=== PATIENT | female | born 1970 | race Hispanic/Latino ===

== ENCOUNTER 2018-06-26 15:31 | Outpatient (CLI) | payer BC, OTHER | END 2018-06-26 15:32 | disposition home or self-care (01) | LOC: LABHHL 15:31 | PROVIDERS: ATTEND Specialist | DX: D05.81 Other specified type of carcinoma in situ of right breast (principal) | CPT/HCPCS: 88305; 88342; 88361 ==

== ENCOUNTER 2018-07-12 12:34 | Outpatient (CLI) | payer BC ==
--- NOTE | 2018-07-15 15:15 | Magnetic Resonance Report ---
BILATERAL BREAST MRI WITHOUT AND WITH CONTRAST: 07/12/18 12:34:00 CLINICAL: Newly diagnosed right breast cancer. Status post right ultrasound guided needle biopsy on 06/26/18 with pathologic diagnosis of invasive carcinoma NOS with Laurens overall histologic grade of 3. COMPARISON:05/22/18 bilateral mammogram. TECHNIQUE: Axial 1.0-mm T1 without, axial high resolution 2.0-mm T2 and axial 1.0-mm dynamic Vibrant high-resolution postcontrast T1 fat saturation sequences on a 1.5 Erin magnet. The examination was performed with an 8 channel dedicated [place] breast coil. Post processing with CAD and subtraction was performed on an [employer] workstation by the radiologist. 18.0 cc of Multihance was injected without incident for the contrast portion of the exam. Consent was obtained prior to the administration of the contrast. FINDINGS: Right: Mild background parenchymal enhancement. The known cancer is an irregular enhancing mass at 2 o'clock 9.9 cm from the nipple measuring 11.7 x 10.1 x 10.0 mm. It demonstrates heterogeneous enhancement with mixed kinetics, 253% peak enhancement, 12% type I persistent, 44% type II plateau and 44% type III washout waveforms. Lesion 2 is an irregular enhancing mass at 12 o'clock 8.3 cm from the nipple measuring 6.6 x 3.4 x 3.0 mm. It is approximately 1 cm anterior and medial to the known cancer. It demonstrates heterogeneous enhancement with mixed kinetics, 203% peak enhancement, 5% type I persistent, 65% type II plateau and 30% type III washout. Lesion 3 is an oval enhancing mass in the lower outer quadrant 9.6 cm from the nipple measuring 1.8 x 0.9 x 0.7 cm. It contains a biopsy clip and correlates with a known benign mass. It demonstrates heterogeneous enhancement with mixed kinetics, 251% peak enhancement, 45% type I persistent, 52% type II plateau and 3% type III washout. No other mass or suspicious enhancement of the right breast. No suspicious lymph nodes. Left: Mild background parenchymal enhancement. Suspicious linear non-Mass enhancement with focal architectural distortion at 12 o'clock 6.3 cm from the nipple measures 11.3 x 4.9 x 3.5 mm. It demonstrates heterogeneous enhancement with next kinetics, 138% peak enhancement, 24% type I persistent, 45% type II plateau and 31% type III washout. A 1.3 cm cyst are identified adjacent to this lesion. No other suspicious enhancement no mass. No suspicious lymph nodes. IMPRESSION: 1. Known right breast cancer and one additional highly suspicious subcentimeter lesion within 1 cm of the known cancer. 2. A 1.8 cm benign outer right breast mass. 3. Suspicious linear non-Mass enhancement of the left breast. Recommend MRI guided needle biopsy of the left breast. 4. No suspicious lymph nodes. RIGHT BI-RADS 6 -- Known Cancer LEFT BI-RADS 4 -- Suspicious
== END 2018-07-12 12:35 | disposition home or self-care (01) ==
LOC: SPVIMAG 12:34
PROVIDERS: ATTEND Surgery
DX: C50.211 Malignant neoplasm of upper-inner quadrant of right female breast (principal)
CPT/HCPCS: A9577; C8908; 77059

== ENCOUNTER 2018-07-22 10:10 | Outpatient (CLI) | payer BC ==
--- NOTE | 2018-07-22 12:50 | Ultrasound Report ---
TARGETED RIGHT BREAST ULTRASOUND: 07/22/18 CLINICAL: Known right breast cancer and an additional 6 mm suspicious mass by MRI. COMPARISON: MRI 07/12/18 FINDINGS: Ultrasound of the left breast demonstrated a single solid irregular hypoechoic mass in the 1 o'clock 4 cm from the nipple. It contains a biopsy clip and correlates with the known cancer. No mass is identified to correlate with the MRI finding. IMPRESSION: Known left breast cancer at 1 o'clock and identifiable mass by ultrasound to correlate with the 6 mm adjacent mass identified by MRI. BI-RADS 6--Known Cancer RECOMMENDATION: MRI guided needle biopsy with clip placement to ensure adequate localization for surgical excision.
== END 2018-07-22 10:11 | disposition home or self-care (01) ==
LOC: SPVWC 10:10
PROVIDERS: ATTEND Surgery
DX: C50.911 Malignant neoplasm of unspecified site of right female breast (principal)

== ENCOUNTER 2018-08-28 10:51 | Observation (INO) | payer BC ==
--- NOTE | 2018-08-27 11:33 | Anesthesia Consultation ---
Anesthesia Consult and Med Hx Date of service: 08/27/18 - Airway Anesthetic Teeth Evaluation: Bridges (upper) ROM Head & Neck: Adequate Mental/Hyoid Distance: Adequate Mallampati Class: Class III Intubation Access Assessment: Probably Good - Pulmonary Exam CTA: Yes - Cardiac Exam Cardiac Exam: RRR - Pre-Operative Health Status ASA Pre-Surgery Classification: ASA3 Proposed Anesthetic Plan: General - Pre-Anesthesia Comment Pre-Anesthesia Comments: CXR pending - Pulmonary Hx Smoking: Yes (1 2 PPD FOR 22 YEARS, QUIT 08/09/18) - Cardiovascular System Hx Hypertension: Yes (8 YEARS) - Central Nervous System Hx Psychiatric Problems: No - Gastrointestinal Hx Gastroesophageal Reflux Disease: No (IBS-D) - Other Systems Hx Cancer: Yes (Right breast CA)
--- NOTE | 2018-08-27 12:23 | XRay Report ---
ROUTINE CHEST, TWO VIEWS: HISTORY: Presurgical evaluation. The trachea, heart, mediastinal contour, lung hernández and bony thorax are unremarkable. IMPRESSION: Unremarkable chest x-ray.
[~2018-08-28 10:51] MED LIST: ANCEF IV ONE; BACITRACIN IR ONE; GARAMYCIN IV ONE; METHYLENE BLUE IRRIGATION ONE; NACL 0.9% 1000 ML IV ONE
[2018-08-28] MEDS ORDERED: NEURONTIN PO NR (11:00)
[2018-08-28] MEDS ORDERED: VERSED IV NR (11:00)
[2018-08-28] MEDS: LACTATED RINGERS 1,000 ML IV SCH (12:15)
[2018-08-28] MEDS ORDERED: DECADRON ONE ×2 (12:44→13:44)
[2018-08-28] MEDS ORDERED: DILAUDID IV PRN (13:22)
--- NOTE | 2018-08-28 13:22 | Anesthesia Day of Surgery ---
Anesthesia Day of Surgery - Day of Surgery Patient Examined: Yes Patient H&P Reviewed: Yes Patient is NPO: Yes
[2018-08-28] MEDS ORDERED: XYLOCAINE MPF 2% ONE (13:44)
[2018-08-28] MEDS ORDERED: SUBLIMAZE ONE (13:44)
[2018-08-28] MEDS ORDERED: ZOFRAN ONE (13:44)
[2018-08-28] MEDS ORDERED: DIPRIVAN 10 MG/ML IV ONE (13:45)
--- NOTE | 2018-08-28 13:49 | Operative Report ---
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 [employer]: Nidhi Hanna DO Anesthesia: Gen. Findings: Right breast clip present within right total mastectomy, left breast clip present within left total mastectomy. 2 sentinel lymph nodes identified and negative for malignancy on frozen section of pathology Complications: None Drains: per Plastic Surgery Estimated blood loss: Minimal Disposition: Dr. Stanton continued with bilateral tissue analysis reporting developer placement Indications for operative procedure: This is a 47-year-old lady with stage I right breast cancer of the upper inner quadrant, [id number] and PALB2 positive gene mutation. Recommendations were to proceed with right total mastectomy with SLN staging and left prophylactic mastectomy, patient high risk for breast cancer given positive PALB2 gene mutation. Patient wished to proceed with the above procedure and immediate tissue analysis reporting developer placement with plastic reconstructive surgery. Procedure in detail: Anesthesia placed a bilateral pectoral muscle block prior to going to the operating room. The patient was taken to the operating room and was placed supine. Gen. anesthesia was administered. The left nipple was injected with radioisotope. Bilateral breast were prepped and draped in the normal postoperative fashion. Timeout was performed. Mastectomy incision markings were made. Attention was taken towards the left breast first. A skin incision was made with a 10 blade knife and dissection taken down to the subcutaneous tissues. First began raising of the superior flap to the level of the clavicle superiorly and posteriorly to the pectoralis muscle. Followed by raising of the medial flap to the level of the sternum and posteriorly to the pectoralis muscle. Followed by raising of the lateral flap to the level of the latissimus dorsi muscle and taken down posteriorly. Followed by raising of the inferior flap to the level of the inframammary fold taken posterior to the pectoralis muscle. The mastectomy/breast was removed from the pectoralis muscle without incident. The specimen was appropriately marked and sent to pathology. Hemostasis was obtained with the bovie cautery. Attention was taken towards the right breast first. A skin incision was made with a 10 blade knife and dissection taken down to the subcutaneous tissues. First began raising of the superior flap to the level of the clavicle superiorly and posteriorly to the pectoralis muscle. Followed by raising of the medial flap to the level of the sternum and posteriorly to the pectoralis muscle. Followed by raising of the lateral flap to the level of the latissimus dorsi muscle and taken down posteriorly. The gamma probe was inserted into the axilla, axillary fascia was opened and 2 sentinel lymph nodes was identified and all remaining counts were less than 10% of the highest count. Lymph nodes were sent to pathology with findings negative for malignancy noted on frozen section. Then proceeded with raising of the inferior flap to the level of the inframammary fold taken posterior to the pectoralis muscle. The mastectomy/ breast was removed from the pectoralis muscle without incident. The specimen was appropriately marked and sent to radiology with findings of 2 breast clips present and sent to pathology. Hemostasis was obtained with the bovie cautery. Dr. Stanton then proceeded with bilateral tissue analysis reporting developer placement.
--- NOTE | 2018-08-28 13:55 | Short Stay Summary ---
Short Stay Documentation Date of service: 08/28/18 - History H&P: obtained from office - Allergies and Medications Current Medications: Allergies No Known Allergies Allergy (Verified 08/19/18 16:14) Home Medications Medication Instructions Recorded Confirmed Last Taken Type Lisinopril/Hydrochlorothiazide 1 each PO DAILY 08/19/18 08/28/18 08/27/18 14:00 History [Zestoretic 10-12.5 mg Tablet] RX: Black Cohosh 540 mg PO DAILY 08/19/18 08/28/18 08/27/18 History Varenicline Tartrate [Chantix] 1 tab PO BID 08/19/18 08/28/18 08/27/18 20:30 History Active Medications Cefazolin Sodium (Ancef/Sterile Water 2 Gm/20 Ml) 2 gm IV PREOP NR Stop: 08/28/18 20:00 Celecoxib (Celebrex) 200 mg PO PREOP NR Stop: 08/28/18 15:00 Last Admin: 08/28/18 12:15 Dose: 200 mg Gabapentin (Neurontin) 300 mg PO PREOP NR Stop: 08/28/18 15:00 Last Admin: 08/28/18 12:15 Dose: 300 mg Hydromorphone HCl (Dilaudid) 0.5 mg IV Q10MIN PRN PRN Reason: Pain , Severe (7-10) Stop: 08/28/18 22:00 Lactated Ringer's (Lactated Ringers) 1,000 mls @ 100 mls/hr IV DIRECT VERONIQUE Last Admin: 08/28/18 12:15 Dose: 100 mls/hr Midazolam HCl (Versed) 2 mg IV PREOP NR Stop: 08/28/18 23:59 Last Admin: 08/28/18 12:48 Dose: 2 mg - Brief post op/procedure progress note Date of procedure: 08/28/18 Pre-op diagnosis: Right breast cancer of the upper inner quadrant Post-op diagnosis: same Procedure: Right total mastectomy with SLNB and left total mastectomy Anesthesia: GETA Findings: 2 slns neg for malignancy; clips present in both breast specimen Surgeon: SIMIN FRAZIER Estimated blood loss: minimal Pathology: list (marcos mastectomy; SLNB) Specimen disposition: to lab Condition: stable - Disposition Condition at discharge: Good Short Stay Discharge Plan Activity: other (no heavy lifting) Diet: regular Wound: keep clean and dry, other (keep incisions clean and dry; no showers or baths) Follow up with: YAMILETH BLANCO DO [Primary Care Provider] - 7 Days SIMIN FRAZIER MD [Staff Physician] - 7 Days
[2018-08-28] MEDS ORDERED: TYLENOL PO PRN (13:57)
[2018-08-28] MEDS ORDERED: SODIUM CHLORIDE FLUSH SYRINGE 10 ML IV PRN (13:57)
[2018-08-28] MEDS ORDERED: BENADRYL PO PRN (13:57)
[2018-08-28] MEDS ORDERED: ZOFRAN IV PRN (13:57)
[2018-08-28] MEDS ORDERED: REGLAN PO PRN (13:57)
[2018-08-28] MEDS ORDERED: MORPHINE IV PRN (13:59)
[2018-08-28] MEDS ORDERED: LACTATED RINGERS 1,000 ML IV SCH (14:00)
[2018-08-28] MEDS ORDERED: ANCEF/STERILE WATER 2 GM/20 ML IV NR (14:00)
[2018-08-28] MEDS ORDERED: BACITRACIN ONE (14:04)
[2018-08-28] MEDS ORDERED: METHYLENE BLUE ONE (14:04)
[2018-08-28] MEDS ORDERED: ANCEF ONE (14:04)
[2018-08-28] MEDS ORDERED: GARAMYCIN ONE (14:05)
[2018-08-28] MEDS ORDERED: NACL 0.9% 1000 ML 1,000 ML ONE (14:05)
[2018-08-28] MEDS ORDERED: DILAUDID ONE (15:30)
--- NOTE | 2018-08-28 17:23 | Post Operative Note ---
Pre-op diagnosis: right breast cancer Post-op diagnosis: same Findings: bilateral mastectomy defects Procedure: bilateral breast reconstruction with expanders and mesh Anesthesia: GETA Surgeon: LAURA HARRIS Estimated blood loss: 50-100ml Specimen disposition: to lab Condition: stable Disposition: PACU
[2018-08-28] MEDS ORDERED: TORADOL ONE (18:00)
[2018-08-28] MEDS ORDERED: LACTATED RINGERS 1,000 ML ONE (18:00)
[2018-08-28] MEDS: ceFAZolin 2 GM in NACL 0.9% 100 ML IV SCH (22:23)
[2018-08-28] MEDS: NEURONTIN PO SCH (22:24)
[2018-08-28] MEDS: COLACE PO SCH (22:24)
[2018-08-28] MEDS: PERCOCET 5/325 PO PRN (22:31)
[2018-08-29] MEDS: LACTATED RINGERS 1,000 ML IV SCH ×2 (00:07→07:22)
--- NOTE | 2018-08-29 00:19 | Operative Report ---
PREOPERATIVE DIAGNOSIS: Right-sided breast cancer. POSTOPERATIVE DIAGNOSIS: Right-sided breast cancer. PROCEDURES: 1. Bilateral breast reconstruction using tissue expanders in a prepectoral pocket, CPT code 72035-00. 2. Bilateral breast reconstruction using biological mesh, FlexHD, CPT code 17739-00. 3. Application of CUATE negative pressure wound VAC device to bilateral breasts for postoperative wound healing, CPT code 02570-17. SURGEON: Ron Clancy MD REPORTING COORDINATOR: None. ANESTHESIA: General. OPERATIVE INDICATIONS: A 47-year-old female, who was referred to me for breast reconstruction. The patient was planning on going on bilateral mastectomy for right-sided breast cancer with Dr. Ag. Options were discussed with the patient as well as the risks and benefits of various techniques, and we decided on a tissue education rep reconstruction. Of note, the patient was at least a 1 pack a day smoker up to the point of consultation. We discussed that in order to do the operation, she would need to quit smoking as the risk of wound healing and other infectious complications was too high for an elective procedure. The patient agreed to quit smoking and quit smoking 2 weeks prior to the procedure and so we decided to move forward. OPERATIVE DETAILS: With informed consent obtained, the patient was brought to the operating room and placed supine on the operating room table. Preoperative antibiotics and general anesthesia were administered. The patient was prepped and draped in the usual sterile fashion. Timeout was called, verifying the patient, the operation being performed. Dr. Ag began her portion of the operation and should be dictated separately. I entered the room when she had finished the left-sided mastectomy and was performing the right-sided mastectomy. Assessed the skin flaps, which were adequate and measured the chest wall diameter and decided on a prepectoral reconstruction. On the backtable, I prepared the implants. We did a tissue education rep with a partial wrap using FlexHD and order of operation was the implants and all the implants were soaked and irrigated in both triple antibiotic irrigation and Betadine. We then took the tissue education rep, deflated it and added 250 mL of saline to it and then wrapped it anteriorly with the FlexHD contour shaped piece. It was secured to the tissue education rep using the #5 suture tabs and 2-0 PDS sutures. This was performed for both implants on the right. We used a iPerceptionsa ultra high profile smooth 700 mL tissue education rep with serial #[id number]. The left same education rep with serial #[id number]. On the right, we used a piece of FlexHD pliable shaped perforated large 13 x 22 cm with serial #[id number]. On the left, we used the same piece except serial #[id number]. Once the expanders were ready, they were again soaked in triple antibiotic and I then assessed the left breast pocket and achieved hemostasis, irrigated again. We put on new gloves. We placed the composite implant into the chest pocket and sutured it to the chest wall using the 5 suture tabs and 2-0 Vicryl suture. I then used banding sutures to pull up the FlexHD anteriorly and make it taut and secured that to the upper pectoralis muscle with 3 spanning sutures. I then placed a 15-Turkish and a 19-Turkish round Anil drain into the prepectoral space, irrigated, achieved hemostasis and then closed with 3-0 Monocryl deep dermals and 2-0 V-Loc running subcuticular. A CUATE negative pressure wound VAC device was applied to the incision for postoperative wound healing and the drains were covered with Biopatches intact. Once Dr. Ag finished the right side, the exact same procedure was performed on the right. The patient tolerated the procedure well, was awakened from general anesthesia, transferred to PACU in stable condition. ESTIMATED BLOOD LOSS: 50 mL. COMPLICATIONS: None. JOB# [id number] MAURICIO/KIERAN HANCOCK
[2018-08-29] MEDS: NEURONTIN PO SCH (05:27)
[2018-08-29] MEDS: ceFAZolin 2 GM in NACL 0.9% 100 ML IV SCH (05:28)
[2018-08-29] MEDS: PERCOCET 5/325 PO PRN ×2 (05:28→10:33)
--- NOTE | 2018-08-29 08:13 | XRay Report ---
SPECIMEN RADIOGRAPH RIGHT BREAST: 08/28/18 13:58:00 CLINICAL: Right breast cancer. FINDINGS: Total mastectomy specimen with 2 biopsy clips identified within the specimen.
--- NOTE | 2018-08-29 08:14 | XRay Report ---
SPECIMEN RADIOGRAPH LEFT BREAST: 08/28/18 13:58:00 CLINICAL: Right breast cancer FINDINGS: A total mastectomy specimen with a single biopsy clip identified within the specimen.
[2018-08-29] MEDS: COLACE PO SCH (09:25)
[2018-08-29 12:17] VITALS: BP 112/65
== END 2018-08-29 12:35 | disposition home or self-care (01) ==
LOC: OR 10:51 → OB 13:58
PROVIDERS: ADMIT Surgery; ATTEND Surgery
DX: C50.911 Malignant neoplasm of unspecified site of right female breast (principal); C50.912 Malignant neoplasm of unspecified site of left female breast
CPT/HCPCS: 15777; 19357; 19366; 64450; 71046; 76098; 78800; 81025; 88307; 88309; 88331; 88333; 88342; 97608; A9541; C1789; G0378; J0690; J1100; J1170; J1580; J1885; J2250; J2405; J2704; J3010; J7030; J7120; Q4128; Q9968

== ENCOUNTER 2019-06-10 08:39 | Day surgery (SDC) | payer BC ==
[~2019-06-10 08:39] MED LIST changes: -ANCEF IV ONE; -BACITRACIN IR ONE; -GARAMYCIN IV ONE; +MARCAINE 0.25% INFILTRATI ONE; -METHYLENE BLUE IRRIGATION ONE; -NACL 0.9% 1000 ML IV ONE; +XYLOCAINE 1% 20 mL ONE
[2019-06-10] MEDS ORDERED: MARCAINE 0.25% INFILTRATI ONE (09:33)
[2019-06-10] MEDS ORDERED: XYLOCAINE 1% 20 mL INFILTRATI ONE (09:33)
[2019-06-10 09:48] VITALS: BP 122/76
--- NOTE | 2019-06-10 10:06 | Procedure Note ---
Date of procedure: 06/10/19 Pre-op diagnosis: breast cancer Post-op diagnosis: same Procedure: removal of left sided port a cath Findings: Left chest prepped and draped in the usual sterile fashion. Time out performed. Patient placed in trendelenberg position. Skin anesthetized with local anesthetic. Incision made using 15 blade at prior surgical scar. Dissection carried out using hemostat to free the port from the surrounding tissue. The catheter was grasped between two hemostats and cut. The catheter was removed and pressure held for 5 minutes. No bleeding from tract. Port then removed. Both pieces sent to path for ID. Wound irrigated with saline. Pressure held for hemostasis which was achieved. The wound was closed in 2 layers. The deep dermal layer was closed with interrupted 3-0 vicryl suture. The skin was closed with running 4-0 monocryl subcuticular suture. There was one area where skin was bleeding which was controlled with a interrupted 4-0 monocryl stitch. Bleeding stopped. Skin cleansed and dermabond applied to incision. Once glue was dry, a folded 2x2 gauze applied to incision and secured with tegaderm. The patient tolerated the procedure well. All sharps disposed of appropriately. Anesthesia: local Surgeon: GERMAINE RAMIRES Estimated blood loss: minimal Pathology: list (port and catheter) Specimen disposition: to lab Condition: stable Disposition: same day (home)
== END 2019-06-10 09:58 | disposition home or self-care (01) ==
LOC: OR 08:39
PROVIDERS: ATTEND Surgery
DX: C50.919 Malignant neoplasm of unspecified site of unspecified female breast (principal); I10 Essential (primary) hypertension; Z88.8 Allergy status to other drugs, medicaments and biological substances; Z79.899 Other long term (current) drug therapy; Z87.891 Personal history of nicotine dependence; Z98.49 Cataract extraction status, unspecified eye; Z90.13 Acquired absence of bilateral breasts and nipples; Z98.891 History of uterine scar from previous surgery; Z98.890 Other specified postprocedural states; Z80.8 Family history of malignant neoplasm of other organs or systems; Z86.2 Personal history of diseases of the blood and blood-forming organs and certain disorders involving the immune mechanism
CPT/HCPCS: 88300; 88302